=== PATIENT | male | born 1945 | race Hispanic/Latino ===

== ENCOUNTER 2022-04-02 11:40 | Emergency (ER) | payer MEDICARE, OTHER ==
[~2022-04-02] VITALS: Ht 154.9 cm; Wt 68.6 kg
[~2022-04-02 11:40] MED LIST: BACTRIM DS1 TAB PO; CEPHALEXIN500 MG PO; CHILD ASA81 MG OR; GABAPENTIN400 M2 PO; LIPITOR10 MG OR; LORTAB5 PO; NEXIUM40 M1 OR; NO MEDS; REQUIP0.5 MG PO; TYLENOL # 31 TA1 PO; TYLENOL #4 PO
[2022-04-02] MEDS ORDERED: TRAMADOL HCL50 MG PO (12:29)
[2022-04-02 13:13] VITALS: BP 133/66
[2022-04-02 13:15] VITALS: BP 123/65
[2022-04-02 13:30] VITALS: BP 123/63
[2022-04-02 13:45] VITALS: BP 123/74
[2022-04-02 14:00] VITALS: BP 129/68
[2022-04-02 14:29] VITALS: BP 129/68
[2022-04-02] MEDS ORDERED: KEFLEX500 MG PO (14:38)
== END 2022-04-02 14:48 | disposition home or self-care (01) ==
LOC: ED 11:40
PROC: 0HQNXZZ Repair Left Foot Skin, External Approach (ICD-10-PCS; principal; 2022-04-02)
DX: S91.312A Laceration without foreign body, left foot, initial encounter (principal); W26.8XXA Contact with other sharp object(s), not elsewhere classified, initial encounter; Y93.E9 Activity, other interior property and clothing maintenance; Y92.008 Other place in unspecified non-institutional (private) residence as the place of occurrence of the external cause